=== PATIENT | male | born 1990 | race Caucasian/White ===

== ENCOUNTER 2024-08-21 16:20 | Emergency (ER) | payer MEDICAID ==
[~2024-08-21] VITALS: Ht 182.9 cm; Wt 71.0 kg
[2024-08-21 16:24] VITALS: BP 125/69; PULSE 101; RESP 18; TEMP 97.7; O2SAT 99
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
[2024-08-21] MEDS ORDERED: CEPH-585 PO (18:25)
[2024-08-21] MEDS ORDERED: HYDR-3965 PO (18:25)
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
== END 2024-08-21 18:48 | disposition home or self-care (01) ==
LOC: ER 16:21
DX: S01.81XA Laceration without foreign body of other part of head, initial encounter (principal); F17.200 Nicotine dependence, unspecified, uncomplicated; Y04.8XXA Assault by other bodily force, initial encounter; Y93.89 Activity, other specified; Y92.89 Other specified places as the place of occurrence of the external cause; Y99.8 Other external cause status
CPT/HCPCS: 12001; 70450; 99284; J7030; A6449